=== PATIENT | female | born 1970 | race Caucasian/White ===

== ENCOUNTER 2023-03-08 22:43 | Emergency (ER) | payer MEDICAID ==
[~2023-03-08] VITALS: Ht 144.8 cm; Wt 68.0 kg
[2023-03-08 22:55] VITALS: BP 114/83; PULSE 88; RESP 16; TEMP 97.8; O2SAT 98
[2023-03-09] MEDS ORDERED: LORATADINE 10 MG TAB PO ONE (02:25)
[2023-03-09] MEDS ORDERED: KETOROLAC 15 MG/ML VIAL IM ONE (02:25)
[2023-03-09] MEDS ORDERED: ACETAMINOPHEN EXTRA STRENGTH 500 MG TAB PO ONE (02:25)
== END 2023-03-09 02:30 | disposition home or self-care (01) ==
LOC: MED 22:43
DX: J06.9 Acute upper respiratory infection, unspecified (principal); R51.9 Headache, unspecified; R11.0 Nausea; R42 Dizziness and giddiness; R06.7 Sneezing
CPT/HCPCS: 96372; 99283; J1885